=== PATIENT | male | born 1995 | race Caucasian/White ===

== ENCOUNTER 2019-10-02 17:45 | Emergency (ER) | payer MEDICAID, OTHER ==
[~2019-10-02] VITALS: Ht 177.8 cm; Wt 68.0 kg
--- NOTE | 2019-10-02 18:00 | NUR ---
[id number] and [employer], in custody, c/o r hand pain and swelling s/p punched the wall yesterday per patient. med clearance for o.t.b. On room air, breathing evenly and unlabored. kept comfortable, will continue to monitor accordingly.
[2019-10-02] MEDS ORDERED: IBUPROFEN 600 MG TABLET PO ONE (18:06)
[2019-10-02] MEDS: IBUPROFEN 600 MG TABLET PO ONE (18:08)
[2019-10-02 19:07] VITALS: BP 115/81
--- NOTE | 2019-10-02 19:07 | NUR ---
Discharged patient via ambulatory in custody accompanied by 2 [employer] in no distress.
== END 2019-10-02 19:07 ==
LOC: ER 17:46
DX: S62.396A Other fracture of fifth metacarpal bone, right hand, initial encounter for closed fracture (principal); S62.394A Other fracture of fourth metacarpal bone, right hand, initial encounter for closed fracture; W22.8XXA Striking against or struck by other objects, initial encounter; Y93.89 Activity, other specified; Y92.89 Other specified places as the place of occurrence of the external cause; Y99.8 Other external cause status
CPT/HCPCS: 73130-TC

== ENCOUNTER 2019-12-11 19:50 | Emergency (ER) | payer MEDICAID, OTHER ==
[~2019-12-11] VITALS: Ht 175.3 cm; Wt 79.4 kg
[2019-12-11 19:50] VITALS: BP 124/79
[2019-12-11] MEDS ORDERED: ACETAMINOPHEN ES 500 MG TABLET ONE (20:53)
[2019-12-11] MEDS ORDERED: ACETAMINOPHEN ES 500 MG TABLET PO ONE (21:00)
== END 2019-12-11 21:11 | disposition home or self-care (01) ==
LOC: ER 19:55
DX: S62.91XA Unspecified fracture of right hand, initial encounter for closed fracture (principal); X58.XXXA Exposure to other specified factors, initial encounter; Y93.89 Activity, other specified; Y92.89 Other specified places as the place of occurrence of the external cause; Y99.8 Other external cause status